=== PATIENT | female | born 1990 | race Two or more races ===

== ENCOUNTER 2024-01-23 08:47 | Emergency (ER) | payer OTHER ==
[~2024-01-23] VITALS: Ht 149.9 cm; Wt 53.5 kg
[2024-01-23] MEDS ORDERED: EMTR1TAB14 PO (09:34)
[2024-01-23 09:43] VITALS: BP 135/71; TEMP 98; O2SAT 97
[2024-01-23] MEDS: EMTRICITABINE/TENOFOVIR 1 TAB PO SCH (11:59)
[2024-01-23 14:36] LABS: HIV-1 p24 ANTIGEN NON REACTIVE (NONREACTIVE); HIV-1/2 ANTIBODY NON REACTIVE (NONREACTIVE)
[2024-01-24 07:09] LABS: HEPATITIS B SURFACE AB Reactive (.)
== END 2024-01-23 09:44 | disposition home or self-care (01) ==
LOC: ER 08:53
DX: Z77.21 Contact with and (suspected) exposure to potentially hazardous body fluids (principal)
CPT/HCPCS: 36415; 86706; 86803; 87806